=== PATIENT | male | born 1980 | race Two or more races ===

== ENCOUNTER → 2024-05-08 14:59 | Outpatient (BNVA) | payer OTHER, SELFPAY | PROVIDERS: PCP Physician Assistant Medical; Visit Provider Surgery | DX: K64.8 Other hemorrhoids (principal) | CPT/HCPCS: 46600; 99202 ==

== ENCOUNTER 2024-12-04 14:40 | Outpatient (AMB) | payer OTHER, SELFPAY ==
--- NOTE | 2024-12-04 14:45 | A.OFFVIS_ITS ---
Vital Signs 12/04/24 14:52 Height 5 ft 3 in Weight 188 lb BMI 33.3 BP 135/78 Blood Pressure Location Rt brachial Position Sitting Pulse 84 Intake Visit Reasons: painful hemorrhoidal skin tags Intake Note: Patient referred by pcp Estella Franz PA-C for evaluation and treatment of external hemorrhoids. Patient c/o: normal BM. Denies constipation, diarrhea. Prior treatment HC 2.5% cream. Helps but hemorrhoids are persistent. 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 He is known to me as I had seen him last April, for hemorrhoid pain, swelling and bleeding. He says that he has had hemorrhoids for many years since he was much younger. He has had periodic swelling and pain of his hemorrhoids. However, last April 2024, he said he did not want to proceed with the hemorrhoid surgery at that time. He had felt that his symptoms had improved when I saw him. However, over the past few months, he continues to have recurrent swelling and pain and significant discomfort. He says he would notice blood per rectum with bowel movements as well. He says that in view of this persistent problems, he now wants to proceed with hemorrhoidectomy. He denies any problems with constipation. [facility] Medical History (Updated 12/04/24 @ 15:07 by Rohit Moss MD) Thyroid disease Hemorrhoids with complication Surgical History No pertinent past surgical history Family History Other Family history unknown Social History Alcohol intake: unknown Patient Tobacco Use Status: Tobacco use Unknown Review of Systems Const Denies chills and Denies fever(s) Card Denies chest pain, Denies dyspnea and Denies dyspnea on exertion Resp Denies cough, Denies dyspnea and Denies dyspnea on exertion GI Reports hematochezia and Denies change in bowel habits Denies hematuria and Denies difficulty urinating Musc Denies back pain and Denies limited range of motion Neuro Denies focal weakness and Denies convulsions Psych Denies depression and Denies mood swings Physical Exam Vital Signs: Last Vital Signs Pulse 84 12/04/24 14:52 BP 135/78 12/04/24 14:52 BMI result Body Mass Index 33.3 Const General: comfortable and no acute distress Orientation/consciousness: patient oriented x3 Neck Neck: Yes no lymphadenopathy Resp Auscultation: clear to auscultation bilaterally Cardio Rhythm: regular rhythm GI Other: Rectal exam shows large, bulky external hemorrhoids with prolapse of the internal component, digital exam and anoscopy deferred Palpation (GI): Soft to palpation, nontender and no guarding Neuro General: patient oriented x3 Assessment & Plan Assessment & Plan (1) Hemorrhoids with complication: Code(s): K64.8 - Other hemorrhoids Category: Medical Plan: He has very large internal external hemorrhoids. He continues to have problems with pain, swelling and bleeding. He now wants to proceed with hemorrhoidectomy I reviewed with him the technique of exam under anesthesia and hemorrhoidectomy. I explained the risks including but not limited to bleeding, infections, postop pain, inherent risks of anesthesia, as well as the benefits and alternatives. I explained to him what to expect postoperatively. He says he understands and wants to proceed. Coding Level of Care Code Est Pt Level 3 (97325) Diagnoses Hemorrhoids with complication K64.8
[2024-12-04 14:52] VITALS: BP 135/78; PULSE 84; BMI 33.3
== END 2024-12-04 15:00 | disposition home or self-care (01) ==
LOC: HO.HGS 14:44
PROVIDERS: PCP Physician Assistant Medical; Visit Provider Surgery
DX: K64.8 Other hemorrhoids (principal)
CPT/HCPCS: 99213

== ENCOUNTER 2025-01-05 07:55 | Day surgery (SDC) | payer OTHER, SELFPAY ==
[2025-01-03 09:41] VITALS: BMI 33.3
--- NOTE | 2025-01-03 10:44 | HO.ANESPROP2 ---
Documented by User: Rose Ayala NP 01/03/25 10:44 HPI - Anesthesia Eval Consult details Narrative: 44 yr old male for EUA, Hemorrhoidectomy PMFSH Active Problems Active Problems: All Active Problems Thyroid disease (Acute) Hemorrhoids with complication (Acute) Past Medical History Medical History Thyroid disease Hemorrhoids with complication Family History Family History Other Family history unknown Surgical History Surgical History No pertinent past surgical history Social History Social History Household Members: Spouse Alcohol intake: unknown Patient Tobacco Use Status: Never used Tobacco Use of substances other than those prescribed or required for medical reasons: No Advance Directives: No Advance Directives Information Provided: Yes Meds Allergies Allergy/AdvReac Type Severity Reaction Status Date / Time No Known Allergies Allergy Verified 12/04/24 14:50 Home Medications ?Medication ?Instructions ?Recorded ?Confirmed ?Last Taken ?Type fluticasone propionate 50 1 spray intranasal DAILY 04/28/24 01/03/25 Unknown History mcg/actuation nasal spray,suspension hydrocortisone 2.5 % topical cream 1 appl [place] BID-QID PRN Pain 04/28/24 01/03/25 Unknown History with perineal applicator levothyroxine 112 mcg tablet 112 mcg PO DAILY 04/28/24 01/03/25 Unknown History lidocaine 3 %-hydrocortisone 0.5 % 1 appl [place] BID 04/28/24 01/03/25 Unknown History rectal cream Exam Height,Weight and Vital Signs: Height 5 ft 3 in Weight 85.275 kg Documented by User: Cari Garcia MD 01/05/25 09:18 PMFSH Past Medical History Medical History Thyroid disease Hemorrhoids with complication Family History Family History Other Family history unknown Surgical History Surgical History No pertinent past surgical history History of Problems with Anesthesia: No Social History Social History Household Members: Spouse Alcohol intake: unknown Patient Tobacco Use Status: Never used Tobacco Use of substances other than those prescribed or required for medical reasons: No Advance Directives: No Advance Directives Information Provided: Yes Meds Allergies Allergy/AdvReac Type Severity Reaction Status Date / Time No Known Allergies Allergy Verified 12/04/24 14:50 Home Medications ?Medication ?Instructions ?Recorded ?Confirmed ?Last Taken ?Type fluticasone propionate 50 1 spray intranasal DAILY 04/28/24 01/03/25 Unknown History mcg/actuation nasal spray,suspension hydrocortisone 2.5 % topical cream 1 appl NH BID-QID PRN Pain 04/28/24 01/03/25 Unknown History with perineal applicator levothyroxine 112 mcg tablet 112 mcg PO DAILY 04/28/24 01/03/25 Unknown History lidocaine 3 %-hydrocortisone 0.5 % 1 appl [place] BID 04/28/24 01/03/25 Unknown History rectal cream Exam Airway Mallampati Class: II TM Dist: >3cm Neck ROM: Full Loose/Missing/Broken Teeth: No Heart: RRR Lungs: CTA Assessment and Plan Assessment Anesthesia Assessment: Anesthesia Plan Discussed and Chart Reviewed Final Anesthetic Review History of Problems with Anesthesia: No NPO: Yes ASA Class: II Final Preanesthetic Review: Meds/Allgs Chart Reviewed, Consent Obtained/Reviewed and Anes Risks/Benef Reviewed Patient Risk: Low Procedure Risk: Low Anesthetic Plan Anesthetic Plan: GA Disposition: Standard PACU
[2025-01-05] VITALS (9 sets, daily range): BP systolic 105–157; BP diastolic 48–92; PULSE 71–96; RESP 14–21; TEMP 36.3–36.6; O2SAT 92–100; BMI 32.8
--- NOTE | 2025-01-05 09:15 | MHC.SHP ---
Pre-Procedural Eval Section A - 24 Hr Update-Section A only Date of Service: 01/05/25 Section B - Complete if H&P > 30 days Chief Complaint: Other hemorrhoids Details of Present Illness: Has large internal external hemorrhoids with complaints of pain and swelling Relevant Social History: None Present Medications: see Short Stay Collaborative assessment Medical History: Significant History (Thyroid disease) History of Previous Operations: No relevant previous surgery Allergies: Allergies Allergy/AdvReac Type Severity Reaction Status Date / Time No Known Allergies Allergy Verified 12/04/24 14:50 Review of Systems Sugical H&P ROS: Negative: Constitution, Cardiovascular and Respiratory Exam Surgical H&P Exam: Normal: Heart, Normal: Lungs and Normal: Abdomen Exam Comment: Rectal exam shows hemorrhoids Plan Diagnosis/Plan: Unchanged I have reviewed the history and physical and performed a pertinent physical examination on my patient. No changes have occurred unless specified. Time Spent With Patient Time: Total time managing care of this patient today ____ minutes.
--- NOTE | 2025-01-05 10:19 | P.OP_ITS ---
Operative Note Operative Note Date of Service: 01/05/25 Narrative: Preop diagnosis: Large internal and external hemorrhoids with pain and swelling Postop diagnosis: The same Procedure: Exam under anesthesia hemorrhoidectomy x2 columns Surgeon: Rohit Moss MD physician office assistant: RIMMA Luna student The patient is a 44-year-old male with large internal and external hemorrhoidal columns, with note of frequent pain swelling. He wanted to proceed with hemorrhoidectomy in view of his symptoms. He understood the technique of the planned procedure as was the risks, benefits, and alternatives. He was brought to the operating room. He was placed in prone ade-knife posit ion under general anesthesia via endotracheal tube. The buttocks were retracted with wide tape laterally. The perianal area was prepped and draped in the usual sterile fashion. A surgical time-out was done. The patient received Cefotan 2 g IV preoperatively I infiltrated the perianal area with lidocaine 1%. Examination of the anal orifice showed large external hemorrhoids on both the left and right side. I inserted the Nasim Blackburn retractor. I examined the anal canal circumferentially. Again, this mixed internal and external hemorrhoidal columns were noted. The were 2 large hemorrhoids, 1 on each side. There were no other lesions I applied a Nielson grasper on the large hemorrhoidal column on the left. I made a [id number]-[id number] stitch at the pedicle past the dentate line with a chromic 3-0 stitch. I made an incision around this hemorrhoidal column to the perianal skin with a blade 15. I excised this hemorrhoidal column along this incision above the plane of the sphincters using scissors. I closed the incision with a running chromic 3-0 stitch. Additional hemostatic fgvkdk-en-xlfml sutures were placed I repeated this procedure on the large hemorrhoidal column on the right. Again this was retracted with a Nielson grasper. I made a kdusfo-ie-mcfsj stitch at the pedicle. I made an incision around this hemorrhoidal column to the perianal skin with a blade 15. I excised this along this incision above the plane of the sphincters with scissors. The incision was closed with a running chromic 3-0 stitch and additional hemostatic pkoigg-ql-xuiqw sutures were placed There were smaller hemorrhoidal columns that were seen on the left posterior. In view of the large hemorrhoids already were removed, I decided not to remove this in view of the risk of severe pain as well as stenosis Once hemostasis was confirmed, I infiltrated the perianal area with Marcaine 0.5% for postop analgesia. The procedure was completed The patient tolerated procedure well. There were no immediate complications. Initial final counts of sponges and instruments were correct. Estimated blood loss was about 25 cc. The patient is extubated without difficulty and rosario sferred to the recovery room with stable vital signs.
[2025-01-05] MEDS: oxyCODONE HCl Immed Release 5 MG TABLET PO (11:06)
== END 2025-01-05 12:46 | disposition home or self-care (01) ==
PROVIDERS: PCP Internal Medicine; Visit Provider Surgery
PROC: (CPT 46260; principal; 2025-01-05 09:50)
DX: K64.8 Other hemorrhoids (principal); K64.4 Residual hemorrhoidal skin tags; K62.5 Hemorrhage of anus and rectum; E07.9 Disorder of thyroid, unspecified; Z79.51 Long term (current) use of inhaled steroids; Z79.899 Other long term (current) drug therapy
CPT/HCPCS: 46260; 88304; J0131; J1100; J1885; J2003; J2250; J2371; J2405; J2704; J2795; J3010

== ENCOUNTER → 2025-01-05 07:55 | Outpatient (BNV) | payer OTHER, SELFPAY | PROVIDERS: PCP Internal Medicine; Visit Provider Surgery | DX: K64.8 Other hemorrhoids (principal) | CPT/HCPCS: 46260 ==

== ENCOUNTER 2025-01-18 09:11 | Outpatient (AMB) | payer OTHER, SELFPAY ==
--- NOTE | 2025-01-18 09:12 | MHC.OFFVIS ---
Vital Signs 01/18/25 09:24 Height 5 ft 3 in Weight 186 lb BMI 32.9 BP 183/73 H Blood Pressure Location Lt brachial Position Sitting Pulse 83 Intake Visit Reasons: s/p EUA hemorrhoidectomy Intake Note: This patient presents for post-op assessment status post EUA, hemorrhoidectomy x2 columns. (01/05/25) Pt c/o; admits to bleeding, had constipation for the first 3 days post surgery, is taking stool softner and Metamucil with relief goes up to 3 times per day, is applying Lidocaine cream to help with pain, and pain meds at night time Clinical Studies Specialist Required: No Accompanied by: Self / Same As Patient Allergies No Known Allergies Allergy (Verified 01/18/25 09:24) HPI HPI s/p EUA hemorrhoidectomy: Details: He underwent hemorrhoidectomy x2 columns last 01/05/2025. He tolerated procedure well. He currently says he still has pain although he this has getting better every day. He admits to have significant pain for the 1st few days postop. [facility] Medical History Thyroid disease Hemorrhoids with complication Surgical History History of hemorrhoidectomy (01/05/25) Family History Other Family history unknown Social History Household Members: Spouse Alcohol intake: unknown Patient Tobacco Use Status: Never used Tobacco Review of Systems Const Denies chills and Denies fever(s) GI Reports hematochezia Physical Exam Const Other: Able to sit down General: no acute distress Resp Effort & Inspection: normal respiratory effort GI Other: Rectal exam shows the hemorrhoidectomy sites to be healing without any evidence of infection, no induration, no fluctuance Assessment & Plan Assessment & Plan (1) Hemorrhoids with complication: Code(s): K64.8 - Other hemorrhoids Category: Medical Plan: Status post hemorrhoidectomy x2 columns. He is doing well. The surgical site is healing. There is no evidence of infection. I advised him to avoid straining and constipation. It would be beneficial to him if he continues to do hot Sitz baths. His path report shows hemorrhoidal tissue. He can follow up with me on a p.r.n. basis In view of his pain, he says he may not be able to return to work until sober 19. Coding Level of Care Code Global (07574) Diagnoses Hemorrhoids with complication K64.8
[2025-01-18 09:24] VITALS: BP 183/73; PULSE 83; BMI 32.9
== END 2025-01-18 09:30 | disposition home or self-care (01) ==
LOC: HO.HGS 09:11
PROVIDERS: PCP Physician Assistant Medical; Visit Provider Surgery
DX: K64.8 Other hemorrhoids (principal)
CPT/HCPCS: 99024

== ENCOUNTER 2025-03-01 14:22 | Outpatient (AMB) | payer OTHER, SELFPAY ==
--- NOTE | 2025-03-01 14:48 | MHC.OFFVIS ---
Vital Signs 03/01/25 14:55 Height 5 ft 3 in Weight 191 lb BMI 33.8 BP 129/67 Blood Pressure Location Rt brachial Position Sitting Pulse 84 Intake Visit Reasons: 1mth follow up hemorrhoidectomy Intake Note: Patient presents for one month follow-up status post hemorrhoidectomy. Pt c/o; reports no rectal bleeding at this time, reports he was having constipation post operatively but now he has been able to have a bm with less pain, no longer taking pain medications. 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 He says he is feeling much better he has had no pain anymore. He denies any bleeding for the past several days. [facility] Medical History Thyroid disease Hemorrhoids with complication Surgical History History of hemorrhoidectomy (01/05/25) Family History Other Family history unknown Social History Household Members: Spouse Alcohol intake: unknown Patient Tobacco Use Status: Never used Tobacco Review of Systems Const Denies chills and Denies fever(s) Physical Exam Const General: comfortable and no acute distress GI Other: Rectal exam shows the hemorrhoidectomy sites to be well healed without any infection Assessment & Plan Assessment & Plan (1) Hemorrhoids with complication: Code(s): K64.8 - Other hemorrhoids Category: Medical Plan: Status post hemorrhoidectomy. He is doing well. His hemorrhoidal cream sites are healed. He says he feels much better I advised him on the importance of avoiding straining and constipation He can follow up on a p.r.n. basis. Coding Level of Care Code Global (33846) Diagnoses Hemorrhoids with complication K64.8
[2025-03-01 14:55] VITALS: BP 129/67; PULSE 84; BMI 33.8
== END 2025-03-01 15:01 | disposition home or self-care (01) ==
LOC: HO.HGS 14:23
PROVIDERS: PCP Physician Assistant Medical; Visit Provider Surgery
DX: K64.8 Other hemorrhoids (principal)
CPT/HCPCS: 99024